=== PATIENT | female | born 1990 | race Caucasian/White ===

== ENCOUNTER 2023-12-06 08:31 | Emergency (ER) | payer OTHER ==
[2023-12-06 08:44] VITALS: RESP 18; BMI 27.8
[2023-12-06] MEDS ORDERED: ACETAMINOPHEN 1000 MG/100 ML BAG IVPB ONE (09:50)
[2023-12-06] MEDS ORDERED: ALBUTEROL SO4 2.5/IPRATROPIUM 0.5 INH SOL 3 ML VIAL.NEB. NEB ONE ×2 (09:50→10:01)
[2023-12-06] MEDS ORDERED: DEXAMETHASONE SOD PHOSPHATE 10 MG/1 ML VIAL IM ONE (09:51)
[2023-12-06] MEDS ORDERED: ACETAMINOPHEN INJECTION 100 ML IVPB ONE (10:00)
[2023-12-06] MEDS ORDERED: DEXAMETHASONE SOD PHOSPHATE 10 MG/1 ML VIAL ONE (10:01)
[2023-12-06 11:23] VITALS: BP 109/60; TEMP 98.6
[2023-12-06 11:27] VITALS: PULSE 97
== END 2023-12-06 11:29 | disposition home or self-care (01) ==
LOC: JERFT 08:31
PROC: 3E033NZ Introduction of Analgesics, Hypnotics, Sedatives into Peripheral Vein, Percutaneous Approach (ICD-10-PCS; principal; 2023-12-06)
PROC: 3E023GC Introduction of Other Therapeutic Substance into Muscle, Percutaneous Approach (ICD-10-PCS; 2023-12-06)
PROC: 3E0F7GC Introduction of Other Therapeutic Substance into Respiratory Tract, Via Natural or Artificial Opening (ICD-10-PCS; 2023-12-06)
DX: R05.9 Cough, unspecified (principal); R09.81 Nasal congestion; J40 Bronchitis, not specified as acute or chronic
CPT/HCPCS: 71046-TC-FY; 99284-25; J1100

== ENCOUNTER 2023-12-11 09:14 | Emergency (ER) | payer OTHER ==
[2023-12-11 09:26] VITALS: BP 104/63; PULSE 90; RESP 18; TEMP 99.3; BMI 27.8
== END 2023-12-11 11:23 | disposition home or self-care (01) ==
LOC: JERFT 09:14
DX: R05.9 Cough, unspecified (principal); Z20.822 Contact with and (suspected) exposure to COVID-19
CPT/HCPCS: 0241U-QW; 99283-25

== ENCOUNTER 2024-05-11 07:21 | Emergency (ER) | payer OTHER ==
[2024-05-11 07:27] VITALS: BP 101/69; PULSE 84; RESP 20; TEMP 98.6; BMI 27.8
[2024-05-11 08:32] LABS: EPI CELLS 9 /uL (0-25.1); HYALINE CASTS 0 /uL (0-3.1); URINE APPEARANCE CLOUDY; URINE BACTERIA 2458 /uL (0-1359); URINE BILIRUBIN NEGATIVE (NEGATIVE); URINE COLOR YELLOW; URINE GLUCOSE (UA) NEGATIVE (NEGATIVE); URINE KETONE NEGATIVE (NEGATIVE); URINE LEUK ESTERASE 3+ (NEGATIVE); URINE NITRITE NEGATIVE (NEGATIVE); URINE PROTEIN 1+ (NEGATIVE); URINE RBC 217 /uL (0-23.9); URINE UROBILINOGEN 0.2 mg/dL (0.2-1.0); URINE WBC 2425 /uL (0-25.8)
[2024-05-11] MEDS ORDERED: IBUPROFEN 600 MG TABLET (FP) PO ONE (08:38)
[2024-05-11] MEDS ORDERED: NITROFURANTOIN MACROCRYSTAL 50 MG CAPSULE (FP) ONE (08:38)
[2024-05-11] MEDS: NITROFURANTOIN MONOHYD/M-CRYST 100 MG CAPSULE PO ONE (08:40)
[2024-05-11] MEDS: IBUPROFEN 600 MG TABLET (FP) PO ONE (08:40)
[2024-05-11 08:42] LABS: HCG,QUALITATIVE URINE Negative
[2024-05-11] MEDS: NITROFURANTOIN MACROCRYSTAL 50 MG CAPSULE (FP) PO ONE (08:47)
== END 2024-05-11 09:09 | disposition home or self-care (01) ==
LOC: JER 07:21
DX: N39.0 Urinary tract infection, site not specified (principal); R35.0 Frequency of micturition; R39.15 Urgency of urination; M54.50 Low back pain, unspecified
CPT/HCPCS: 81003; 84703; 87086; 87186; 99283-25

== ENCOUNTER 2024-05-12 01:50 | Emergency (ER) | payer OTHER ==
[2024-05-12 01:57] VITALS: BP 97/67; PULSE 75; RESP 20; TEMP 97.7; BMI 27.8
[2024-05-12] MEDS ORDERED: ACETAMINOPHEN INJECTION 100 ML IVPB ONE (02:24)
[2024-05-12] MEDS: ACETAMINOPHEN 1000 MG/100 ML BAG IVPB ONE (02:29)
[2024-05-12 02:36] LABS: BASO % 1.1 % (0-2.0); EOS % 1.4 % (0-4.5); HEMATOCRIT 34.4 % (32.4-45.2); HEMOGLOBIN 11.1 GM/dL (10.7-15.3); LYMPH % 42.7 % (8-40); MCH 24.2 pg (25.7-33.7); MCHC 32.2 g/dl (32.0-36.0); MEAN CELL VOLUME 75.3 fl (80-96); MEAN PLT VOLUME 7.2 fl (7.5-11.1); MONO % 6.1 % (3.8-10.2); NEUT % 48.7 % (42.8-82.8); PLATELET COUNT 459 10^3/uL (134-434); RBC 4.56 M/mm3 (3.60-5.2); WHITE BLOOD COUNT 9.1 K/mm3 (4.0-10.0)
[2024-05-12] MEDS: LACTATED RINGERS SOLUTION 1000 ML INFUS.BAG IV ONE (02:36)
[2024-05-12 02:53] LABS: POTASSIUM 4.4 mmol/L (3.5-5.1)
[2024-05-12 02:55] LABS: CALCIUM 9.4 mg/dL (8.5-10.1)
[2024-05-12 02:56] LABS: ALBUMIN 3.7 g/dl (3.4-5.0); BLOOD UREA NITROGEN 11.6 mg/dL (7-18)
[2024-05-12 02:59] LABS: CREATININE 0.6 mg/dL (0.55-1.3)
[2024-05-12 03:00] LABS: TOT PROT 7.7 g/dl (6.4-8.2)
[2024-05-12 03:01] LABS: BILIRUBIN,TOTAL 0.3 mg/dL (0.2-1)
[2024-05-12] MEDS ORDERED: KETOROLAC TROMETHAMINE 15 MG/ML VIAL ONE (03:44)
[2024-05-12] MEDS: KETOROLAC TROMETHAMINE 15 MG/ML VIAL IVPUSH ONE (03:46)
== END 2024-05-12 05:14 | disposition home or self-care (01) ==
LOC: JER 01:50
PROC: 3E033NZ Introduction of Analgesics, Hypnotics, Sedatives into Peripheral Vein, Percutaneous Approach (ICD-10-PCS; principal; 2024-05-12)
PROC: 3E0333Z Introduction of Anti-inflammatory into Peripheral Vein, Percutaneous Approach (ICD-10-PCS; 2024-05-12)
DX: R10.31 Right lower quadrant pain (principal); N23 Unspecified renal colic; K52.9 Noninfective gastroenteritis and colitis, unspecified; R35.0 Frequency of micturition; R30.0 Dysuria; M54.9 Dorsalgia, unspecified; R10.2 Pelvic and perineal pain
CPT/HCPCS: 36415; 74176-TC; 80053; 84703; 85025; 99284-25; J0131